=== PATIENT | male | born 1950 | race Caucasian/White ===

== ENCOUNTER → 2016-11-27 | Day surgery (SDC) | payer OTHER ==
[2016-11-24 16:14] VITALS: BMI 34.7
[~2016-11-27] MED LIST: SODIUM CHLORIDE 0.9% 1,000 ML IV SCH
[2016-11-27 07:29] VITALS: RESP 18; TEMP 98.4
[2016-11-27 07:33] LABS: Glucose,Whole Blood 195 mg/dL (75-99)
[2016-11-27 09:17] VITALS: BP 135/82; PULSE 82
[2016-11-27 09:20] LABS: Glucose,Whole Blood 181 mg/dL (75-99)
--- NOTE | 2016-11-27 15:10 | P.PCN ---
Preoperative Diagnosis: Twelve-lead ECG shows sinus rhythm with normal MS narrow QRS and nonspecific ST- T abdomen is in the lateral precordial leads Tilt table test Baseline blood pressure 144/88 mmHg Baseline heart rate 71 beats a minute patient was tilted upright at night (70 per protocol was a slow gradually progressiv increase in blood pressure. Lowest blood pressure recorded by cuff was 93 mmHg. Mild increase in heart rate 200 beats a minute over 45 minutes Patient felt very weak and lightheaded at the end of the procedure Impression Dysautonomia response to upright tilting Postoperative Diagnosis: Procedure(s) Performed: Implants: Indications for Procedure: Operative Findings: Description of Procedure:
== END ==
LOC: CATHEP 07:07
PROVIDERS: ATTEND Internal Medicine Clinical Cardiac Electrophysiology
DX: G90.1 Familial dysautonomia [Riley-Day] (principal); R55 Syncope and collapse; E11.9 Type 2 diabetes mellitus without complications; I10 Essential (primary) hypertension; E78.5 Hyperlipidemia, unspecified; Z79.4 Long term (current) use of insulin; Z79.899 Other long term (current) drug therapy; Z88.5 Allergy status to narcotic agent; Z88.0 Allergy status to penicillin
CPT/HCPCS: 93005; 93660

== ENCOUNTER → 2017-07-06 | Outpatient (CLI) | payer OTHER ==
--- NOTE | 2017-07-06 08:25 | MR ---
EXAMINATION TYPE: MR lumbar spine wo con DATE OF EXAM: 07/06/2017 COMPARISON: NONE HISTORY: Low back pain TECHNIQUE: Multiplanar, multisequence images of the lumbar spine were acquired. FINDINGS: The lumbar vertebral bodies maintain normal vertebral body heights and alignment. Bone marrow signal is within normal limits. Multilevel disc desiccation is mild throughout the lumbar spine. Small anter ior osteophytes are seen. Multilevel facet arthropathy is also noted. Conus medullaris is unremarkabl e terminating at L1. L1-L2: Normal disc appearance without desiccation. No herniation, protrusion or disc bulging. No ca nal stenosis is present. Foramina are patent bilaterally. L2-L3: Normal disc appearance without desiccation. No herniation, protrusion or disc bulging. No ca nal stenosis is present. Foramina are patent bilaterally. L3-L4: There is a small broad-based disc bulge without focality to suggest herniation. There is no re sultant neural foraminal narrowing or spinal canal stenosis. Mild ligamentum flavum buckling is seen at this level as well as mild facet arthropathy. L4-L5: Moderate facet arthropathy and a broad-based disc bulge create mild bilateral neural foraminal narrowing. Ligamentum flavum hypertrophy contributes to mild spinal canal stenosis. L5-S1: Right paracentral annular tear is seen in combination with a broad-based disc bulge. Mild face t arthropathy is also noted. No significant neural foraminal narrowing or spinal canal stenosis. IMPRESSION: 1. No focal disc herniation. 2. Mild multilevel degenerative disc disease at L3-S1 creating mild spinal canal stenosis at L4-L5 an d mild neural foraminal narrowing at this level.
== END | disposition home or self-care (01) ==
LOC: RADMRIMAIN 07:01
PROVIDERS: ATTEND Psychiatry & Neurology Neurology
DX: M48.061 Spinal stenosis, lumbar region without neurogenic claudication (principal); M99.73 Connective tissue and disc stenosis of intervertebral foramina of lumbar region; M51.37 Other intervertebral disc degeneration, lumbosacral region; Z88.0 Allergy status to penicillin; Z88.5 Allergy status to narcotic agent
CPT/HCPCS: 72148

== ENCOUNTER 2017-11-12 08:39 | Day surgery (SDC) | payer MEDICARE, OTHER ==
[2017-11-06 13:13] VITALS: BMI 35.6
[~2017-11-12 08:39] MED LIST changes: +CLINDAMYCIN 600 MG in DEXTROSE 5% IN WATER 50 ML IVPB ONE; +DEXAMETHASONE SOD PHOSPHATE 10 MG/ML 1 ML VIAL IV ONE; +DEXAMETHASONE SOD PHOSPHATE 4 MG/ML 1 ML VIAL IV ONE; +FAMOTIDINE 20 MG/2 ML VIAL IV ONE; +HYDROmorphone 0.5 MG/0.5 ML SYRINGE IVP PRN; +LACTATED RINGERS 1,000 ML IV SCH; +MIDAZOLAM 2 MG/2 ML VIAL IV PRN; +MORPHINE SULFATE 4 MG/ML SYRINGE IV PRN; +ONDANSETRON 4 MG/2 ML VIAL IVP ONE; -SODIUM CHLORIDE 0.9% 1,000 ML IV SCH
[2017-11-12 10:10] VITALS: RESP 16
[2017-11-12] MEDS ORDERED: LIDOCAINE 1% 20 ML VIAL (10MG/ML) FOR IV START INTRADERMA ONE (10:23)
[2017-11-12] MEDS: OXYMETAZOLINE 0.05% NASL SPRAY 1 SPRAY BOTTLE EA NOSTRIL ONE ×5 (10:25→10:45)
[2017-11-12 10:31] LABS: Glucose,Whole Blood 150 mg/dL (75-99)
[2017-11-12] MEDS: MELOXICAM 7.5 MG TAB PO NR ×2 (10:43→14:09)
[2017-11-12] MEDS ORDERED: LIDOCAINE 1%-EPI 1:100,000 20 ML VIAL SQ ONE ×2 (11:15→11:42)
[2017-11-12] MEDS ORDERED: EPINEPHrine 1 MG/ML (MDV) 30 ML VIAL TOPICAL ONE ×2 (11:15→11:42)
[2017-11-12] MEDS ORDERED: FLUORESCEIN STRIPS 1 MG STRIP MISCELLANE ONE ×2 (11:15→11:42)
[2017-11-12] MEDS ORDERED: LIDOCAINE 1% INJ 10MG/ML (20 ML MDV) ONE (11:16)
[2017-11-12] MEDS ORDERED: SUCCINYLCHOLINE CHLORIDE VIAL 200 MG/10 ML VIAL IV ONE (11:16)
[2017-11-12] MEDS ORDERED: ePHEDrine SULFATE/0.9% NACL/PF 50 MG/5 ML SYRINGE IV ONE (11:16)
[2017-11-12] MEDS ORDERED: MIDAZOLAM 2 MG/2 ML VIAL ONE (11:16)
[2017-11-12] MEDS ORDERED: DEXAMETHASONE SOD PHOS (MDV) 100 MG/10 ML VIAL ONE (11:16)
[2017-11-12] MEDS ORDERED: fentaNYL (PF) 50 MCG/ML 2 ML AMP ONE (11:16)
[2017-11-12] MEDS ORDERED: PROPOFOL 10 MG/ML 20 ML VIAL IV ONE (11:16)
[2017-11-12] MEDS ORDERED: BUPIVACAINE (PF) 0.5% 30 ML VIAL SQ ONE ×2 (11:25→11:42)
[2017-11-12 13:00] VITALS: TEMP 97.2
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
[2017-11-12 13:15] LABS: Glucose,Whole Blood 151 mg/dL (75-99)
[2017-11-12] MEDS ORDERED: LACTATED RINGERS 1,000 ML IV ONE (13:39)
[2017-11-12] MEDS ORDERED: ACETAMINOPHEN TAB 325 MG TAB PO ONE (14:09)
[2017-11-12 14:33] VITALS: BP 124/56; PULSE 67
== END 2017-11-12 14:45 | disposition home or self-care (01) ==
LOC: OR 08:39
PROVIDERS: ATTEND Otolaryngology
DX: J34.2 Deviated nasal septum (principal); J32.9 Chronic sinusitis, unspecified; J34.89 Other specified disorders of nose and nasal sinuses; Z87.81 Personal history of (healed) traumatic fracture; E11.9 Type 2 diabetes mellitus without complications; Z79.4 Long term (current) use of insulin; I10 Essential (primary) hypertension; Z72.0 Tobacco use; H91.90 Unspecified hearing loss, unspecified ear; Z86.19 Personal history of other infectious and parasitic diseases; Z79.82 Long term (current) use of aspirin; Z79.891 Long term (current) use of opiate analgesic; Z79.899 Other long term (current) drug therapy; Z88.5 Allergy status to narcotic agent; Z88.0 Allergy status to penicillin
CPT/HCPCS: 88305; 88300; 30520; 31267; 31259; C2625; J0171; J2250; J0330; J2405; J2001; J3010; J1100; J2704

== ENCOUNTER 2017-11-13 16:11 | Emergency (ER) | payer MEDICARE, OTHER ==
[2017-11-13 16:27] VITALS: BP 138/71; PULSE 71; RESP 20; TEMP 97.2
[2017-11-13] MEDS ORDERED: LIDOCAINE/EPINEPHR/TETRACAINE 5 ML BOTTLE TOPICAL ONE (17:05)
[2017-11-13] MEDS ORDERED: OXYMETAZOLINE 0.05% NASL SPRAY 1 SPRAY BOTTLE NASAL STA (17:05)
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
== END 2017-11-13 19:02 | disposition home or self-care (01) ==
LOC: EC 16:11
DX: R04.0 Epistaxis (principal); J34.89 Other specified disorders of nose and nasal sinuses; E78.5 Hyperlipidemia, unspecified; I10 Essential (primary) hypertension; E11.9 Type 2 diabetes mellitus without complications; M19.90 Unspecified osteoarthritis, unspecified site; G89.29 Other chronic pain; H91.90 Unspecified hearing loss, unspecified ear; F17.200 Nicotine dependence, unspecified, uncomplicated; Z79.4 Long term (current) use of insulin; Z79.82 Long term (current) use of aspirin; Z79.899 Other long term (current) drug therapy; Z88.0 Allergy status to penicillin; Z88.5 Allergy status to narcotic agent; Z96.89 Presence of other specified functional implants
CPT/HCPCS: 99283

== ENCOUNTER 2018-02-25 10:13 | Day surgery (SDC) | payer MEDICARE, OTHER ==
[2018-02-18 13:55] VITALS: BMI 34.1
[~2018-02-25 10:13] MED LIST changes: -DEXAMETHASONE SOD PHOSPHATE 10 MG/ML 1 ML VIAL IV ONE; -DEXAMETHASONE SOD PHOSPHATE 4 MG/ML 1 ML VIAL IV ONE; -HYDROmorphone 0.5 MG/0.5 ML SYRINGE IVP PRN; -MORPHINE SULFATE 4 MG/ML SYRINGE IV PRN; +fentaNYL (PF) 50 MCG/ML 2 ML AMP IV PRN
[2018-02-25] MEDS: OXYMETAZOLINE 0.05% NASL SPRAY 1 SPRAY BOTTLE NASAL ONE ×4 (11:00→11:24)
[2018-02-25 11:08] VITALS: TEMP 96.9
[2018-02-25 11:16] LABS: Glucose,Whole Blood 144 mg/dL (75-99)
[2018-02-25] MEDS ORDERED: MIDAZOLAM 2 MG/2 ML VIAL ONE (13:23)
[2018-02-25] MEDS ORDERED: SUCCINYLCHOLINE CHLORIDE VIAL 200 MG/10 ML VIAL IV ONE (13:23)
[2018-02-25] MEDS ORDERED: fentaNYL (PF) 50 MCG/ML 2 ML AMP ONE (13:23)
[2018-02-25] MEDS ORDERED: LIDOCAINE 1% INJ 10MG/ML (20 ML MDV) ONE (13:23)
[2018-02-25] MEDS ORDERED: PROPOFOL 10 MG/ML 20 ML VIAL IV ONE (13:23)
[2018-02-25] MEDS ORDERED: ePHEDrine SULFATE/0.9% NACL/PF 50 MG/5 ML SYRINGE IV ONE (13:23)
[2018-02-25] MEDS ORDERED: BUPIVACAIN-EPI 0.5%-1:200,000 30 ML VIAL SQ ONE (13:41)
[2018-02-25] MEDS ORDERED: LIDOCAINE 1%-EPI 1:100,000 20 ML VIAL SQ ONE (13:41)
[2018-02-25] MEDS ORDERED: BACITRACIN 500 UNIT/GM OINT 28.4 GM TUBE TOPICAL ONE (13:41)
[2018-02-25 14:45] VITALS: RESP 16
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
[2018-02-25 15:11] LABS: Glucose,Whole Blood 141 mg/dL (75-99)
[2018-02-25 15:31] VITALS: PULSE 66
[2018-02-25 15:50] VITALS: BP 110/67
== END 2018-02-25 16:32 | disposition home or self-care (01) ==
LOC: OR 10:13
PROVIDERS: ATTEND Otolaryngology
DX: L90.5 Scar conditions and fibrosis of skin (principal); I10 Essential (primary) hypertension; E11.9 Type 2 diabetes mellitus without complications; Z79.2 Long term (current) use of antibiotics; Z79.4 Long term (current) use of insulin; Z79.1 Long term (current) use of non-steroidal anti-inflammatories (NSAID); Z79.891 Long term (current) use of opiate analgesic; Z79.899 Other long term (current) drug therapy; Z88.5 Allergy status to narcotic agent; Z88.0 Allergy status to penicillin; Z88.2 Allergy status to sulfonamides
CPT/HCPCS: 88305; 11443; 15240; J2250; J0330; J2001; J3010; J2704